=== PATIENT | female | born 1955 ===

== ENCOUNTER 2024-04-23 19:08 | Emergency (ER) | payer MEDICARE, SELFPAY ==
[2024-04-23 19:11] VITALS: BP 125/82; PULSE 100; RESP 18; TEMP 37.6; O2SAT 90; BMI 35.4
--- OUTSIDE RECORDS SUMMARY | 2024-04-23 19:11 | XMS_ITS | Clinical Summary ---
Author Organization [facility] Address [address] [place] [id number] Care Team Providers Care Shoe Treer Name Role Phone Atif Killian Primary Care Provide r Allergies Active Allergy Reactions Criticality Noted Date Comments Erythromycin Itching,Edema 07/29/2010 Swelled up in face/hands Penicillins Itching,Edema 07/29/2010 Swelled up in face and hands Medications atorvastatin (LIPITOR) 10 mg tabletIndications:O ther hyperlipidemia Take 1 Tablet (10 mg) by mouth once daily. 90 Tablet 3 4 Active levothyroxine (SYNTHROID) 75 mcg tabletIndications:H ypothyroidism (acquired) Take 1 tablet by mouth once daily 90 Tablet 5 Active Active Problems Problem Noted Date Diagnosed Date Osteoporosis 09/06/2023 Colon polyp 01/23/2022 Overview (01/23/2022): Colonoscopy 01/2022 large TA, repeat in 3 years Body mass index (BMI) 35.0-35.9, adult 9 Ingrowing nail 11/11/2015 Tobacco abuse 10/03/2013 Memory loss 01/26/2012 Other hyperlipidemia 05/06/2011 Hypothyroidism (acquired) Resolved Problems Problem Noted Date Diagnosed Date Resolved Date Osteopenia 07/12/2017 08/31/2022 Encounters Date Type Department Care Team Description 03/13/2024 Refill [facility] [address] [place] [address] [address] Power [place] Refill Request (Levothyroxine) from Last 3 Months Immunizations Name Administration Dates Next Due AMB Influenza, IIV4 PF (=>6 mos Flulaval,Fluzone Fluarix)(Flu Clinic Only) 11/11/2015 COVID-19 vaccine (Moderna 100mcg/0.5mL) PF, MDV 02/20/2021 Influenza, High-dose Quadrivalent Inactivated Influenza, IIV3 (Age >=3 years) 11/19/2009 Influenza, IIV4 11/25/2016 Influenza, IIV4 (=>6mos) MDV 11/15/2018,11/12/19 18 Pneumococcal conj 13-Valent (Prevnar 13) 021 Tdap 05/29/2009 Family History Medical History Relation Name Comments Kidney cancer Father Stomach cancer Mother Stroke Sister 1 Cancer-breast No Family History Relation Name Status Comments Father (Age 79) Cause of d eath was kidney cancer Mother (Age 73) Cause of d eath was stomach cancer Sister 1 Alive Sister 2 Alive Social History Tobacco Use Types Packs/Day Years Used Date Smoking Tobacco: Every Day Cigarettes Smokeless Tobacco: Never Tobacco Cessation:Ready to Q uit: No; Counseling Given: Yes Alcohol Use Standard Drinks/Week Comments Yes 0 (1 standard drink = 0.6 oz pur e alcohol) RARELY PHQ-2 Answer Date Recorded PHQ-2 TOTAL SCORE 0 09/06/2023 Financial Resource Strain Answer Date R ecorded Difficulty of Paying Living Expenses Not on file 02/22/2021 Difficulty of Paying Living Expenses Not on file 02/22/2021 Comments No Sex and Gender Information Value Date Recorded Sex Assigned at Not on file Legal Sex Female 7:36 AM RN QUALITY Gender Identity Not on file Sexual Orientation Not on file Obstetrics History Last Filed Vital Signs Vital Sign Reading Time Taken Comments Blood Pressure 130/82 09/06/2023 9:11 AM CDT Pulse 95 09/06/2023 9:11 AM CDT Temperature 37.1 C (98.7 F) 11/05/2020 5:23 PM CDT Respiratory Rate 16 11/05/2020 5:23 PM CDT Oxygen Saturation 93% 12/09/2022 9:01 AM CDT Inhaled Oxygen Concentration - - Weight 94.6 kg (208 lb 8 oz) 09/06/2023 9:11 AM CDT Height 160 cm (5' 2.99) 09/06/2023 9:11 AM CDT Body Mass Index 36.95 09/06/2023 9:11 AM CDT Plan of Treatment Health Maintenance Due Date Last Done Comments Zoster (shingles) series for age 50+ (1 of 2) 2004 Tetanus booster 05/30/2019 05/29/2009 Pneumococcal series for age 50+ (2 of 2 - PPSV23) 11/26/2020 10/01/2020 COVID-19 vaccine series ( - season) 2023 02/20/2021, 05/30/2020, 05/02/2020 Influenza for age 65+ 10/24/2023 12/07/2019 , 11/15/2018, 11/11/2017, Additional history exists Mammogram for age 45-75 07/22/2024 07/23/19, 04/07/2022, 11/01/2020, Additional history exists BMI (ht and wt on same day) for age 18+ 09/05/2024 09/06/2023, 08/31/2022, 09/24/2021 Medicare Wellness for age 65+ 09/06/2024, 08/31/2022, 09/24/2021 Depression screening for age 12+ 09/07/2024 09/08/2023, 09/06/2023, 08/31/2022, Additional history exists Colonoscopy through age 75 01/20/202501/20, 01/20/2022, 01/20/2022 Lipids for age 45-75 09/05/2028 09/06/2023, 08/31/2022, 09/24/2021, Additional history exists RSV vaccine for adults or (1 - 1-dose 75+ series) 2029 Tdap Completed 05/29/2009 Hepatitis C screening for ag e 18-79 Completed 10/01/2020 DEXA/DXA scan for age 65+ Completed 09/02/2022 Procedures Procedure Name Priority Date/Time Associated Diagnosis Comments LIPID PANEL W REFLEX MEASURED LDL Routine 09/06/2023 9:45 AM CDT Other hyperlipidemia XR MAMMO TOMASZ BILAT SCREEN Routine 07/23/2023 1:04 PM CDT Visit for screening mammogram XR DXA BONE DENSITY 2 SITES AXIAL Routine 09/02/2022 8:49 AM CDT Tobacco abuse Post-menopausal COLONOSCOPY DIAGNOSTIC Routine 01/20/2022 10:27 AM RN QUALITY Positive colorectal cancer screening using DNA-based stool test ANTI HCV Routine 10/01/2020 11:02 AM CDT Need for hepatitis C screening test from Last 3 Months or Most Recently Relevant to Health Maintenance Results * LIPID PANEL W REFLEX MEASURED LDL (09/06/2023 9:45 AM CDT) CHOLESTEROL,TOTAL 163 100 - 199 mg/dL 09/06/2023 2:52 PM CDT [facility] Comment: Cholesterol, Total Reference Ranges Desirable <200 mg/dL Borderline 200-239 mg/dL High >=240 mg/dL TRIGLYCERIDES 142 <150 mg/dL 09/06/2023 2:52 PM CDT [facility] HDL CHOLESTEROL 42 >40 mg/dL 2:52 PM CDT [facility] NON-HDL CHOLESTEROL 121 <145 mg/dl 09/06/2023 2:52 PM CDT [facility] CHOL/HDL RATIO 3.88 <4.50 09/06/2023 2:52 PM CDT [facility] LDL CHOLESTEROL 93 <=130 mg/dL 09/06/2023 2:52 PM CDT [facility] VLDL CHOLESTEROL 28 <=30 mg/dL 09/06/2023 2:52 PM CDT [facility] PROVIDER ORDERED STATUS RANDOM 09/06/2023 2:52 PM CDT [facility] Blood BLOOD SPECIMEN / Unknown Venipuncture / Unknown 09/06/2023 9:45 AM CDT 09/06/2023 9:[address] [facility] CHEMISTRY Final Result [facility] [address] [place] [address], [place] * XR MAMMO TOMASZ BILAT SCREEN (07/23/2023 1:04 PM CDT) Anatomical Region Laterality Modality BREASTS, Breast Left, Breast Right Bilateral Mammography Impressions 07/26/2023 10:48 AM CDT There is no radiographic evidence for malignancy. Recommend annual mammograms. MAMMOGRAM ASSESSMENT: ACR 1 Negative PATIENTS: You will also receive a letter with your examination results in an easy to read format. If you have questions about your results, please contact your referring provider. Narrative 07/26/2023 10:48 AM CDT For Patients: As a result of the Century Cures Act, medical imaging exams and procedure reports are released immediately into your electronic medical record. You may view this report before your referring provider. If you have questions, please contact your health care provider. XR MAMMO TOMASZ BILAT SCREEN [[id number]] CLINICAL HISTORY: This is an asymptomatic 67 y.o. patient. INDICATION FOR EXAM: Mammogram Screening. TECHNIQUE: CC & MLO views were obtained. This study was evaluated with the assistance of Computer-Aided Detection. Breast Tomosynthesis was used in interpretation. COMPARISON FILM: [facility] FINDINGS: The breasts have scattered areas of fibroglandular density. There are no dominant masses, suspicious micro calcifications or areas of architectural distortion. Ct [facility] MAMMO Final Result * XR DXA BONE DENSITY 2 SITES AXIAL (09/02/2022 8:49 AM CDT) Anatomical Region Laterality Modality Spine, HIPS, HIPL, HIPR Computed Radiography 09/02/2022 8:49 AM CDT Impressions 09/02/2022 10:01 AM CDT OSTEOPOROSIS. T score meets the WHO criteria for osteoporosis at one or more measured sites. The risk of osteoporotic fracture increases approximately two-fold for each standard deviation decrease in T-score. Narrative 09/02/2022 10:01 AM CDT For Patients: As a result of the Cures Act, medical imaging exams and procedure reports are released immediately into your electronic medical record. You may view this report before your referring provider. If you have questions, please contact your health care provider. EXAM: XR DXA BONE DENSITY 2 SITES AXIAL LOCATION: [facility] DATE: 09/02/2022 INDICATION: Osteopenia, low bone density. Smoker. DEMOGRAPHICS: Age- 66 years. Gender- Female. Menopausal status- Postmenopausal. COMPARISON: 07/20/2012. TECHNIQUE: Dual-energy x-ray absorptiometry (DXA) performed with routine technique. FINDINGS: DXA RESULTS -Lumbar Spine: L1-L4: BMD: 0.947 g/cm2. T-score: -1.9. Z-score: -1.0. Degenerative change may artifactually increase BMD. -RIGHT Hip Total: BMD: 0.794 g/cm2. T-score: -1.7. Z-score: -0.9. -RIGHT Hip Femoral neck: BMD: 0.689 g/cm2. T-score: -2.6. Z-score: -1.4. -LEFT Hip Total: BMD: 0.735 g/cm2. T-score: -2.2. Z-score: -1.3. -LEFT Hip Femoral neck: BMD: 0.593 g/cm2. T-score: -3.2. Z-score: -2.1. WHO T-SCORE CRITERIA -Normal: T score at or above -1 SD -Osteopenia: T score between -1 and -2.5 SD -Osteoporosis: T score at or below -2.5 SD The World Health Organization (WHO) criteria is applicable to perimenopausal females, postmenopausal females, and men aged 50 years or older. INTERVAL CHANGE -There has been a 7.9% increase in lumbar spine BMD. -There has been a 3.2% decrease in bilateral hip BMD. FRACTURE RISK -The FRAX risk calculator is not applicable due to osteoporosis. RECOMMENDATIONS The patient's BMD is consistent with osteoporosis, and he/she is at increased fracture risk. If not currently being treated for low BMD, this would merit treatment according to the Bone Health and Osteoporosis Foundation. Procedure Note Bean White MD - 09/02/2022 For Patients: As a result of the Century Cures Act, medical imagingexams and procedure reports are released immediately into your electronicmedical record. You may view this report before your referring provider.If you have questions, please contact your health care provider. EXAM: XR DXA BONE DENSITY 2 SITES AXIAL LOCATION: [facility] DATE: 09/02/2022 INDICATION: Osteopenia, low bone density. Smoker. DEMOGRAPHICS: Age- 66 years. Gender- Female. Menopausal status-Postmenopausal. COMPARISON: 07/20/2012. TECHNIQUE: Dual-energy x-ray absorptiometry (DXA) performed with routinetechnique. FINDINGS: DXA RESULTS -Lumbar Spine: L1-L4: BMD: 0.947 g/cm2. T-score: -1.9. Z-score: - 1.0.Degenerative change may artifactually increase BMD. -RIGHT Hip Total: BMD: 0.794 g/cm2. T-score: -1.7. Z-score: -0.9. -RIGHT Hip Femoral neck: BMD: 0.689 g/cm2. T-score: -2.6. Z-score: -1.4. -LEFT Hip Total: BMD: 0.735 g/cm2. T-score: -2.2. Z-score: -1.3. -LEFT Hip Femoral neck: BMD: 0.593 g/cm2. T-score: -3.2. Z-score: -2.1. WHO T-SCORE CRITERIA -Normal: T score at or above -1 SD -Osteopenia: T score between -1 and -2.5 SD -Osteoporosis: T score at or below -2.5 SD The World Health Organization (WHO) criteria is applicable toperimenopausal females, postmenopausal females, and men aged 50 years orolder. INTERVAL CHANGE -There has been a 7.9% increase in lumbar spine BMD. -There has been a 3.2% decrease in bilateral hip BMD. FRACTURE RISK -The FRAX risk calculator is not applicable due to osteoporosis. RECOMMENDATIONS The patient's BMD is consistent with osteoporosis, and he/she is atincreased fracture risk. If not currently being treated for low BMD, thiswould merit treatment according to the Bone Health and OsteoporosisFoundation. IMPRESSION: OSTEOPOROSIS. T score meets the WHO criteria for osteoporosis at one ormore measured sites. The risk of osteoporotic fracture increasesapproximately two-fold for each standard deviation decrease in T-score. us Ct [facility] DEXA Final Result * COLONOSCOPY (01/20/2022 10:59 AM RN QUALITY) 01/20/2022 10:5 9 AM RN QUALITY Narrative Transcriptions Buzz Fuentes MD - 01/20/2022 11:40 AM CST Patient Name: Jeanine Crawford Procedure Date: 01/20/2022 Gender: Female Date of : 1955 Admit Type: Outpatient Procedure: Colonoscopy Proceduralist: Buzz Fuentes MD , Iveth Terry (Nurse), Marcella Dave (Nurse) Referring MD: Atif Killian Indications/Pre-Op Diagnosis: This is the patient's first colonoscopy, Positive Cologuard test Medications: Fentanyl 100 micrograms IV, Midazolam 2 mgIV, The level of sedation administered wasmoderate Procedure Description: The patient had risks, benefits and alternatives explained to andgave informed consent. The patient had a stable cardiopulmonary status and judged an adequate candidate for conscious sedation. The endoscope [id number] [id number] was passed through the anus andadvanced to the cecum, identified by appendiceal orifice and ileocecal valve.The colonoscopy was performed without difficulty. The patient toleratedthe procedure well. The quality of the bowel preparation was good. The ileocecal valve, appendiceal orifice, and rectum were photographed. Complications: No immediate complications. Estimated Blood Loss & Specimen: Estimated blood loss: none. Specimen collected - Yes and sent to Laboratory Findings: The perianal and digital rectal examinations were normal. A 4 mm polyp was found in the transverse colon. The polyp wassessile. The polyp was removed with a cold snare. Resection and retrieval were complete. A 6 mm polyp was found in the descending colon. The polyp wassessile. The polyp was removed with a hot snare. Resection and retrieval were complete. A 20 mm polyp was found in the sigmoid colon at 18 cm. The polyp was pedunculated. The polyp was removed with a hot snare. Resection and retrieval were complete. To prevent bleeding after the polypectomy,two hemostatic clips were successfully placed (MR conditional). Clip transverse abdominal muscle surgeon: Aura XM. There was no bleeding during, or atthe end, of the procedure. Area was tattooed with an injection of Spot (carbon black) distal to the polypectomy site. A 3 mm polyp was found in the sigmoid colon at 16 cm. The polyp was semi-pedunculated. The polyp was removed with a cold snare. Resection and retrieval were complete. The exam was otherwise without abnormality. Impressions/Post-Op Diagnosis: - One 4 mm polyp in the transverse colon, removed with a cold snare. Resected and retrieved. - One 6 mm polyp in the descending colon, removed with a hot snare. Resected and retrieved. - One 20 mm polyp in the sigmoid colon, removed with a hot snare. Resected and retrieved. Clips (MR conditional) were placed. Clip transverse abdominal muscle surgeon: Aura XM. Tattooed. - One 3 mm polyp in the sigmoid colon, removed with a cold snare. Resected and retrieved. - The examination was otherwise normal. Recommendation: - Patient has a contact number available for emergencies. The signsand symptoms of potential delayed complications were discussed with the patient. Return to normal activities tomorrow. Written discharge instructions were provided to the patient. - Resume previous diet. - Continue present medications. - Await pathology results. - Repeat colonoscopy is recommended for surveillance. The colonoscopy date will be determined after pathology results from today's exambecome available for review. - Avoid heavy lifting greater than 30 lbs., asprin/ nonsteroidal medicines, exercise and strenuous activity for 2 weeks. Moderate Sedation: A time out was performed before the procedure. Moderate (conscious) sedation was administered by the endoscopy nurse and supervised bythe endoscopist. The following parameters were monitored: oxygensaturation, heart rate, blood pressure, EKG, CO2, respiratory rate, adequacy of pulmonary ventilation and reponse to care. Please refer to the patient's medical record flowsheets and nursing notes for moderate sedation details. Total physician intraservice time was 31 minutes. Buzz Fuentes MD 01/20/2022 11:40:18 AM This report has been signed electronically. Note Initiated On: 01/20/2022 10:59 AM Procedure Code(s): --- Professional --- 10942, Colonoscopy, flexible; with removalof tumor(s), polyp(s), or other lesion(s) bysnare technique 20374, Colonoscopy, flexible; with directed submucosal injection(s), any substance CPT copyright 2020 [employer]. All rights reserved. The codes documented in this report are preliminary and upon water systems designer reviewmay be revised to meet current compliance requirements. Scope In: 11:03:43 AM Scope Withdrawal Time 0 hours 23 minutes 22 seconds Scope Out: 11:32:24 AM Buzz Fuentes MD PROCEDURE ORD Final Res ult * ANTI HCV (10/01/2020 11:02 AM CDT) HEPATITIS C ANTIBODY Non-React melvi Non-React melvi 10/01/2020 10:08 PM CDT [facility] Comment:Antibodies to HCV no t detected; does not exclude the possibility of exposure to HCV. Blood BLOOD SPECIMEN / Unknown Venipuncture / Unknown 10/01/2020 11:02 AM CDT 10/01/2020 11:05 AM CDT Atif Killian DO SEND OUTS Final Result [facility] [address] [place] [address], from Last 3 Months or Most Recently Relevant to Health Maintenance Insurance MEDICARE PART B HB ONLY [employer] MEDICARE ADVANTAGE Advance Directives * Full Code (Latest Code Status on File) Date Activated Date Inactivated Comments 07/30/2010 8:44 AM 07/30/2010 9:34 AM Care Teams Shoe Treer Relationship Specialty [place] [address] [place] [address] PCP - General 05/31/08
--- NOTE | 2024-04-23 19:14 | ED_ITS ---
HPI - Weakness General Time Seen by Provider: 19:14 Date Seen: 04/23/24 Chief complaint: Weakness Stated complaint: weakness Time Seen by Provider: 04/23/24 19:14 Source: patient, RN notes reviewed and old records reviewed Mode of arrival: EMS Limitations: no limitations History of Present Illness HPI Narrative: 68-year-old female who presents by EMS for generalized weakness. Patient notes weakness starting overnight. Also cough and chills. No runny nose, no sore throat. No nausea vomiting or diarrhea. Denies chest pain or shortness of breath. Notes some urinary incontinence which may be secondary to not being able to get the bathroom in time. Related Data Allergies Allergy/AdvReac Type Severity Reaction Status Date / Time azithromycin Allergy Verified 04/23/24 19:15 Penicillins Allergy Verified 04/23/24 19:15 Exam Narrative: Exam Narrative: General: Well-developed and well-nourished, no acute distress Head: Atraumatic and normocephalic Eyes: Pupils are equal reactive, extraocular motions intact, conjunctiva clear ENT: External nose and ears are normal, posterior pharynx without erythema or exudate Neck: No midline cervical tenderness, full spontaneous range of motion the neck, trachea midline, no adenopathy Heart: Tachycardic but regular Lungs: Bilateral expiratory wheezes with crackles on the left Abdomen: Soft, nontender, nondistended with active bowel sounds Musculoskeletal: No tenderness, deformity, or edema Neurologic: Awake, alert, and oriented x3, no gross focal neurologic deficits, cranial nerves intact as tested Psych: Mood and affect are appropriate Skin: No rashes Const: Vital Signs, click to edit/add: Vital Signs - 24 hr 04/23/24 19:11 Temperature 99.7 F H Pulse Rate [Pulse Oximeter] 100 Respiratory Rate 18 Blood Pressure [Ri ght Upper Arm] 125/82 Pulse Oximetry 90 Oxygen Delivery Me thod Room Air Course Course ED Course: Reviewed most recent primary care note from July which was a Medicare physical, on Synthroid, no specific concerns. Patient reports history of hypothyroidism, hyperlipidemia, and smoking. Patient presents today with generalized weakness, chills, cough. Started last night. Denies nausea, vomiting, diarrhea. No chest pain or shortness of breath. No focal weakness. Says she woke up on the floor last night, unclear what happened. On exam here, patient is awake alert, mild tachycardia and borderline oxygen saturation, expiratory wheezes bilaterally with some crackles on the left. Symptoms most consistent with pneumonia, cannot exclude other infectious etiology including urinary tract infection. Labs ordered along with a chest x-ray, nebulizer treatment, which Tylenol, and will initiate Rocephin and doxycycline for community-acquired pneumonia. Reevaluation(s) Time of Reevaluation #1: 20:03 Reevaluation #1: Labs ordered and independently interpreted by me with a normal CBC, normal basic panel of the mild hyponatremia, influenza a positive. Chest x-ray and panel interpreted by me with some atelectasis in left base but no other acute findings. Patient will be started on Tamiflu, anticipate discharge EKG independently interpreted by me performed at 7:49 p.m. demonstrates sinus rhythm rate 93, nonspecific ST changes, no acute ischemic changes, QTC 445, RI 124. No prior for comparison. Time of Reevaluation #2: 20:56 Reevaluation #2: Patient unable to produce urine sample. She has no dysuria, no abdominal pain, no urinary frequency. She has cough, fever, weakness with a positive influenza test. Symptoms today are unlikely related to urinary tract infection and are most likely from influenza a. Will cancel urinalysis and patient is stable for discharge Vital Signs Vital signs: Initial Vital Signs Temperature 99.7 F H 04/23/24 19:11 Temperature Source Temporal Artery Scan 04/23/24 19:11 Pulse Rate 100 04/23/24 19:11 Respiratory Rate 18 04/23/24 19:11 Blood Pressure 125/82 04/23/24 19:11 Blood Pressure Mean 96 04/23/24 19:11 Blood Pressure Position Supine 04/23/24 19:11 Pulse Oximetry 90 04/23/24 19:11 Oxygen Delivery Method Room Air 04/23/24 19:11 Vital Signs Temperature 99.7 F H 04/23/24 19:11 Pulse Rate 100 04/23/24 19:11 Respiratory Rate 18 04/23/24 19:11 Blood Pressure 125/82 04/23/24 19:11 Pulse Oximetry 90 04/23/24 19:11 Oxygen Delivery Method Room Air 04/23/24 19:11 Temperature 99.7 F H 04/23/24 19:11 Pulse Rate 100 04/23/24 19:11 Respiratory Rate 18 04/23/24 19:11 Blood Pressure 125/82 04/23/24 19:11 Pulse Oximetry 90 04/23/24 19:11 Oxygen Delivery Method Room Air 04/23/24 19:11 Medications Administered Medications: Discontinued Medications Generic Name Dose Route Start Last Admin Trade Name Freq PRN Reason Stop Dose Admin Acetaminophen 1,000 mg 04/23/24 19:21 04/23/24 20:05 Acetaminophen 500 Mg Tablet PO 04/23/24 19:22 1,000 mg ONCE ONE Administration Albuterol/Ipratropium 1 neb 04/23/24 19:21 04/23/24 20:05 Iprat-Albut 0.5-2.5 Mg/3 Ml Neb IH 04/23/24 19:22 1 neb ONCE ONE Administration Doxycycline Hyclate 100 mg 04/23/24 19:21 04/23/24 20:19 Doxycycline Hyclate 100 Mg PO 04/23/24 19:22 Not Given ONCE ONE Ceftriaxone Sodium 2 gm/ 100 mls @ 200 mls/hr 04/23/24 19:21 04/23/24 20:19 Sodium Chloride IVPB 04/23/24 19:22 Not Given ONCE ONE Methylprednisolone Sodium Succinate 125 mg 04/23/24 20:05 04/23/24 20:18 Methylprednisolone Sod Succ 62.5 Mg/Ml (125) IVP 04/23/24 20:06 125 mg ONCE ONE Administration Oseltamivir Phosphate 75 mg 04/23/24 20:04 04/23/24 20:07 Oseltamivir Phosphate 75 Mg Capsule PO 04/23/24 20:05 75 mg ONCE ONE Administration MDM - Weakness Lab Data Labs: Lab Results 04/23/24 04/23/24 Range/Units 19:16 19:23 WBC 8.56 (4.50-11.00) K/uL RBC 5.15 (4.00-5.20) m/uL Hgb 13.7 (12.0-16.0) gm/dL Hct 42.1 (33.0-51.0) % MCV 82 (80-100) fL MCH 27 (26-34) pg MCHC 33 (32-36) gm/dL RDW Coeff of Cass 18.1 H (11.5-15.5) % Plt Count 241 (140-440) K/uL Neut % (Auto) 79.6 H (42.0-72.0) % Lymph % (Auto) 10.2 L (20-44) % Emmons % (Auto) 10.0 (0.0-11.0) % Eos % (Auto) 0.0 (0.0-7.0) % Baso % (Auto) 0.1 (0.0-3.0) % Neut # (Auto) 6.80 (1.7-7.0) K/uL Lymph # (Auto) 0.90 (0.90-2.90) K/uL Emmons # (Auto) 0.90 (0.00-0.90) K/UL Eos # (Auto) 0.00 (0.00-0.50) K/uL Baso # (Auto) 0.01 (0.00-0.30) K/uL Abs Immat Gran (auto) 0.01 (0.00-0.30) K/uL Imm/Tot Granulo (auto) 0.1 % Sodium 134 L (135-149) mmol/L Potassium 3.8 (3.6-5.1) mmol/L Chloride 102 (96-114) mmol/L Carbon Dioxide 20 (20-32) mmol/L Anion Gap 12 (7-15) mEq/L BUN 15 (7-30) mg/dL Creatinine 0.8 (0.5-1.5) mg/dL Estimated Creat Clear 43.92 Estimated GFR 80 ml/min Glucose 106 (60-115) mg/dL Lactate 1.5 (0.5-1.9) mmol/L Calcium 8.8 (8.4-10.6) mg/dL Magnesium 1.9 (1.5-2.6) mg/dL NT-Pro-B Natriuret Pep 432 pg/mL SARS-CoV-2 (PCR) Negative SARS-CoV-2 (Negative) Influenza Type A (PCR) POSITIVE PCR FLU A A (Negative) Influenza Type B (PCR) Negative PCR FLU B (Negative) RSV (PCR) Negative PCR RSV (Negative) Discharge Plan Discharge Clinical Impression: Influenza A Patient Disposition: Home w/ Parent or Adult Condition: Stable Instructions: Influenza (ED) Additional Instructions: Take Tamiflu and prednisone as prescribed starting tomorrow morning Take Tylenol and ibuprofen as needed for fever, chills, body ache Use inhaler as prescribed Activity Level: No Restrictions Discharge Diet: Regular Follow Up/Referrals: Isela Paris PA-C [Primary Care Provider] - Stand Alone Forms: [employer] Info Instructions
--- NOTE | 2024-04-23 19:21 | CRLHL7_ITS ---
For Patients: As a result of the Cures Act, medical imaging exams and procedure reports are released immediately into your electronic medical record. You may view this report before your referring provider. If you have questions, please contact your health care provider. INDICATION: Cough and fever COMPARISON: None. TECHNIQUE: Two radiographic view(s) of the chest. FINDINGS: No pleural effusion. No pneumothorax. No definite focal pulmonary consolidation. Linear atelectasis or scarring at the left lower lung zone. Normal heart size. There are osseous degenerative changes. Mild anterior vertebral body wedging most conspicuous in the midthoracic spine. IMPRESSION: No acute cardiopulmonary findings. Dictated by Braden Rowell MD @ 04/23/2024 7:56:41 PM (Electronically Signed)
[2024-04-23 19:29] LABS: Lactate* 1.5 mmol/L (0.5-1.9)
[2024-04-23 19:40] LABS: Basophils Absolute Auto 0.01 K/uL (0.00-0.30); Basophils Percent Auto 0.1 % (0.0-3.0); Hematocrit 42.1 % (33.0-51.0); Hemoglobin* 13.7 gm/dL (12.0-16.0); Immature Granulocytes Abs Auto 0.01 K/uL (0.00-0.30); Immature Granulocytes Pct Auto 0.1 %; Lymphocytes Percent Auto 10.2 % (20-44); Mean Corpuscular HGB Conc 33 gm/dL (32-36); Mean Corpuscular Hemoglobin 27 pg (26-34); Mean Corpuscular Volume 82 fL (80-100); Neutrophils Percent Auto 79.6 % (42.0-72.0); Platelet Count* 241 K/uL (140-440); RDW Coefficient of Variation % 18.1 % (11.5-15.5); Red Blood Count 5.15 m/uL (4.00-5.20); White Blood Count* 8.56 K/uL (4.50-11.00)
[2024-04-23 19:51] LABS: Slide Review Reflex No
[2024-04-23 19:56] LABS: Chloride* 102 mmol/L (96-114); Potassium* 3.8 mmol/L (3.6-5.1); Sodium* 134 mmol/L (135-149)
[2024-04-23 19:58] LABS: PCR FLU A POSITIVE PCR FLU A (Negative); PCR FLU B Negative PCR FLU B (Negative); PCR RSV Negative PCR RSV (Negative); SARS PCR* Negative SARS-CoV-2 (Negative)
[2024-04-23 19:58] LABS: Blood Urea Nitrogen* 15 mg/dL (7-30); Creatinine* 0.8 mg/dL (0.5-1.5); Est. Creatinine Clearance* 43.92; Estimated Glomerular Filt Rate 80 ml/min
[2024-04-23 19:59] LABS: Anion Gap 12 mEq/L (7-15); Calcium* 8.8 mg/dL (8.4-10.6); Carbon Dioxide* 20 mmol/L (20-32); Glucose* 106 mg/dL (60-115); Magnesium* 1.9 mg/dL (1.5-2.6)
[2024-04-23] MEDS: ACETAMINOPHEN 500 MG TABLET 1000 MG PO (20:05)
[2024-04-23] MEDS: IPRAT-ALBUT 0.5-2.5 MG/3 ML NEB 1 NEB IH (20:05)
[2024-04-23] MEDS: OSELTAMIVIR PHOSPHATE 75 MG CAPSULE PO (20:07)
[2024-04-23 20:12] LABS: NT Pro B Type NatriureticPept* 432 pg/mL
[2024-04-23] MEDS: METHYLPREDNISOLONE SOD SUCC 62.5 MG/ML (125) 125 MG IVP (20:18)
--- OUTSIDE RECORDS SUMMARY | 2024-04-23 21:06 | XMS_ITS | Clinical Summary ---
Author Organization [facility] Address [address] [place] [id number] Care Team Providers Care Expense Analyst Name Role Phone Atif Killian Primary Care [...] Type Department Care Team Description 03/13/2024 Refill [facility] [address] [place] [address] Ct Power PA Refill Request (Levothyroxine) from [...] on file Legal Sex Female 7:36 AM WIG SALES CONSULTANT Gender Identity Not on file Sexual Orientation [...] Post-menopausal COLONOSCOPY DIAGNOSTIC Routine 01/20/2022 10:27 AM WIG SALES CONSULTANT Positive colorectal cancer screening using DNA-based stool test ANTI HCV Routine 10/01/2020 11:02 AM CDT Need for hepatitis C screening test from Last 3 Months or Most Recently Relevant to Health Maintenance Results * LIPID PANEL W REFLEX MEASURED LDL (09/06/2023 9:45 AM CDT) CHOLESTEROL,TOTAL 163 100 - 199 mg/dL 09/06/2023 2:52 PM CDT [facility] Comment: Cholesterol, Total Reference Ranges Desirable <200 mg/dL Borderline 200-239 mg/dL High >=240 mg/dL TRIGLYCERIDES 142 <150 mg/dL 09/06/2023 2:52 PM CDT [facility] HDL CHOLESTEROL 42 >40 mg/dL 2:52 PM CDT [facility] NON-HDL CHOLESTEROL 121 <145 mg/dl 09/06/2023 2:52 PM CDT [facility] CHOL/HDL RATIO 3.88 <4.50 09/06/2023 2:52 PM CDT [facility] LDL CHOLESTEROL 93 <=130 mg/dL 09/06/2023 2:52 PM CDT [facility] VLDL CHOLESTEROL 28 <=30 mg/dL 09/06/2023 2:52 PM CDT [facility] PROVIDER ORDERED STATUS RANDOM 09/06/2023 2:52 PM CDT [facility] Blood BLOOD SPECIMEN / Unknown Venipuncture / Unknown 09/06/2023 9:45 AM CDT 09/06/2023 9:[address] [facility] Final Result [facility] [address] [place] [address], [place] * XR MAMMO TOMASZ BILAT SCREEN [...] care provider. XR MAMMO TOMASZ BILAT SCREEN [[id number]] CLINICAL HISTORY: This is an asymptomatic 67 y.o. patient. INDICATION FOR EXAM: Mammogram Screening. TECHNIQUE: CC & MLO views were obtained. This study was evaluated with the assistance of Computer-Aided Detection. Breast Tomosynthesis was used in interpretation. COMPARISON FILM: [facility] FINDINGS: The breasts have scattered areas of [...] DXA BONE DENSITY 2 SITES AXIAL LOCATION: [facility] DATE: 09/02/2022 INDICATION: Osteopenia, low bone density. [...] DXA BONE DENSITY 2 SITES AXIAL LOCATION: [facility] DATE: 09/02/2022 INDICATION: Osteopenia, low bone density. [...] Final Result * COLONOSCOPY (01/20/2022 10:59 AM WIG SALES CONSULTANT) 01/20/2022 10:5 9 AM WIG SALES CONSULTANT Narrative Transcriptions Buzz Fuentes MD - 01/20/2022 [...] adequate candidate for conscious sedation. The endoscope [facility]-[id number] [id number] was passed through the anus andadvanced to [...] clips were successfully placed (MR conditional). Clip kitchen designer: [employer] There was no bleeding during, or atthe [...] retrieved. Clips (MR conditional) were placed. Clip kitchen designer: [employer] Tattooed. - One 3 mm polyp in [...] 10:59 AM Procedure Code(s): --- Professional --- 77699, Colonoscopy, flexible; with removalof tumor(s), polyp(s), or other lesion(s) bysnare technique 70933, Colonoscopy, flexible; with directed submucosal injection(s), any substance CPT copyright 2020 [employer]. All rights reserved. The codes documented in this report are preliminary and upon tooling specialist reviewmay be revised to meet current compliance requirements. Scope In: 11:03:43 AM Scope Withdrawal Time 0 hours 23 minutes 22 seconds Scope Out: 11:32:24 AM Buzz Fuentes MD PROCEDURE ORD Final Res ult * ANTI HCV (10/01/2020 11:02 AM CDT) HEPATITIS C ANTIBODY Non-React melvi Non-React melvi 10/01/2020 10:08 PM CDT [facility] Comment:Antibodies to HCV no t detected; does not exclude the possibility of exposure to HCV. Blood BLOOD SPECIMEN / Unknown Venipuncture / Unknown 10/01/2020 11:02 AM CDT 10/01/2020 11:05 AM CDT Atif Killian DO SEND OUTS Final Result [facility] [address] [place] [address], from Last 3 Months or Most Recently Relevant to Health Maintenance Insurance MEDICARE PART B HB ONLY [employer] MEDICARE [employer]VANTAGE Advance Directives * Full Code (Latest Code Status on File) Date Activated Date Inactivated Comments 07/30/2010 8:44 AM 07/30/2010 9:34 AM Care Teams Expense Analyst Relationship Specialty [place] [address] [place] [address] PCP - General 05/31/08
[2024-04-23 21:11] VITALS: RESP 16; O2SAT 92
== END 2024-04-23 21:18 | disposition home or self-care (01) ==
LOC: ED 21:04
PROVIDERS: Emergency Provider Family Medicine; PCP Physician Assistant
DX: J10.1 Influenza due to other identified influenza virus with other respiratory manifestations (principal); R53.1 Weakness; J98.11 Atelectasis; R06.2 Wheezing
CPT/HCPCS: 36415; 71046; 80048; 81001; 83605; 83735; 83880; 85025; 87631; 93005; 96374; 96375; 99284; 99285; A9270; J2919